=== PATIENT | male | born 1960 | race Caucasian/White ===

== ENCOUNTER → 2024-09-03 11:29 | Outpatient (REF) | payer OTHER, SELFPAY ==
[2024-09-03 12:47] LABS: Rubella Positive
[2024-09-04 11:36] LABS: Mumps Virus IgG Positive; Rubeola (Measles) IgG Positive; Varicella Zoster IgG (VZV) Positive
[2024-09-05 08:47] LABS: Quantiferon Mitogen minus NIL 3.83 IU/mL; Quantiferon NIL 0.55 IU/mL; Quantiferon Plus TB1 minus NIL 0.05 IU/mL (<=0.34); Quantiferon Plus TB2 minus NIL 0.01 IU/mL (<=0.34); Quantiferon TB Gold Plus Negative (Negative)
== END ==
LOC: OHS 11:29
PROVIDERS: ATTENDING PHYSICIAN Nurse Practitioner Family
DX: Z23 Encounter for immunization (principal)
CPT/HCPCS: 36415; 86480; 86735; 86762; 86765; 86787